=== PATIENT | female | born 1990 | race Caucasian/White ===

== ENCOUNTER 2019-10-29 12:37 | Inpatient (IN) | payer OTHER ==
[2019-10-29] MEDS: Lactated Ringer's 1,000 ML IV SCH ×2 (12:30→16:10)
[~2019-10-29 12:37] MED LIST: Bupivacaine/Epinephrine 0.25% 30 ML VIAL ONE
[2019-10-29 12:49] VITALS: BMI 31.7
[2019-10-29] MEDS ORDERED: HYDROcodone/Acetaminophen 5/325 mg Tablet PO PRN ×4 (13:01→22:43)
[2019-10-29] MEDS ORDERED: NS / Oxytocin 40 units/1000ml 1,000 ML IV PRN (13:01)
[2019-10-29] MEDS ORDERED: Carboprost 250 MCG/ML AMP IM PRN (13:01)
[2019-10-29] MEDS ORDERED: Diphenoxylate HCl/Atropine Tablet PO PRN ×2 (13:01)
[2019-10-29] MEDS ORDERED: Methylergonovine 0.2 MG/ML VIAL IM PRN ×2 (13:01→22:43)
[2019-10-29] MEDS ORDERED: Acetaminophen 500 MG TAB PO PRN (13:01)
[2019-10-29] MEDS ORDERED: Lidocaine 1% (PF) 30 ML VIAL SC PRN (13:01)
[2019-10-29] MEDS ORDERED: Butorphanol Tartrate 1 MG/ML VIAL SLOW IVP PRN (13:01)
[2019-10-29] MEDS ORDERED: Ibuprofen 800 MG TAB PO PRN (13:01)
[2019-10-29] MEDS ORDERED: Ondansetron PF 4 MG/2 ML Vial IVP PRN ×3 (13:01→22:43)
[2019-10-29] MEDS ORDERED: Zolpidem Tartrate 5 MG TAB PO PRN ×2 (13:01→22:43)
[2019-10-29] MEDS ORDERED: hydrALAZINE 20 MG/ML VIAL SLOW IVP PRN ×2 (13:01→22:43)
[2019-10-29] MEDS ORDERED: Promethazine HCl 25 MG/ML VIAL IM PRN ×3 (13:01→22:43)
[2019-10-29] MEDS ORDERED: Misoprostol 200 MCG TAB PR PRN (13:01)
[2019-10-29] MEDS ORDERED: NS w/ Oxytocin 10 units 500 ML IV SCH ×2 (13:15)
--- NOTE | 2019-10-29 13:17 | PDOC.LDHP ---
Labor and Delivery H&P Chief complaint: contractions HPI: 29 y/o at 38 weeks presents in labor, cervical check in office difficult due to very low station of head, patient discomfort during exam , and outer cervical os is paper thin and 6-7 cm dilated. Patient requesting epidural as soon as possible. Current gestational age (weeks): 38 Grav: 4 Para: 1 Current complications: none Abnormal US findings: No Current medications: pre-karishma vitamins Previous surgical history: none Allergies/Adverse Reactions: Allergies Allergy/AdvReac Type Severity Reaction Status Date / Time No Known Allergies Allergy Verified 10/29/19 12:42 Social history: none - Physical Exam Vital signs reviewed and normal: yes General: NAD Heart: RRR Lungs: CTAB Abdomen: gravid Extremeties: no edema FHT: category 1 - Vaginal Exam cm dilated: 6 - Assessment L&D Assessment: term patient in labor - Plan Plan: admit to L&D, labor augmentation if indicated
[2019-10-29 13:51] LABS: Hemoglobin 8.9 g/dL (12.0-16.0); Mean Corpuscular HGB CONC 31.6 g/dL (32.0-36.0); Mean Corpuscular Hemoglobin 22.7 pg (27.0-31.0); Mean Platelet Volume 11.8 fL (7.4-10.4); Platelet Count 220 thou/uL (130-400); RBC Distribution Width 17.1 % (11.5-14.5); Red Blood Cell (RBC) Count 3.91 mill/uL (4.20-5.40); White Blood Cell (WBC) Count 9.3 thou/uL (4.8-10.8)
[2019-10-29] MEDS ORDERED: Fentanyl 4 mcg/Bup 0.1% Cadd 100 ML ONE (14:03)
[2019-10-29 14:30] LABS: Syphilis Antibody Nonreactive (Nonreactive); Syphilis Antibody Index 0.13 S/CO (<1.00 Non-Reactive)
[2019-10-29 14:31] LABS: HBSAg Index 0.18 S/CO (0-0.99); Hep B Surf Ag Non-Reactive S/CO (NonReactive)
[2019-10-29] MEDS ORDERED: EPHEDRINE 25 MG/5 ML SYRINGE SLOW IVP PRN (14:58)
[2019-10-29] MEDS ORDERED: Naloxone HCl 0.4 mg/ml Vial IVP PRN ×2 (14:58)
[2019-10-29] MEDS ORDERED: Lactated Ringer's 500 ML IV PRN (14:58)
[2019-10-29] MEDS ORDERED: Acetaminophen 325 MG TAB PO PRN (14:58)
[2019-10-29] MEDS ORDERED: diphenhydrAMINE 50 MG/ML VIAL IVP PRN (14:58)
[2019-10-29] MEDS ORDERED: Communication Order-Pharmacy FS SCH (15:00)
[2019-10-29] MEDS ORDERED: Fentanyl 4 mcg/Bupivacaine 0.1% Cassette 100 ML EPIDURAL SCH (15:00)
[2019-10-29] MEDS ORDERED: Lidocaine 1% (PF) 30 ML VIAL ONE (19:25)
[2019-10-29] MEDS ORDERED: NS / Oxytocin 40 units/1000ml 1,000 ML IV SCH (22:43)
[2019-10-29] MEDS ORDERED: Misoprostol 200 MCG TAB VAG PRN (22:43)
[2019-10-29] MEDS ORDERED: Milk Of Magnesia 30 ML UDCUP PO PRN (22:43)
[2019-10-29] MEDS ORDERED: Bisacodyl 10 MG SUPP PR PRN (22:43)
[2019-10-29] MEDS ORDERED: Benzocaine-Menthol 82.5 ML CAN TOP PRN (22:43)
[2019-10-29] MEDS ORDERED: Lanolin Ointment 7 GM TUBE TOP PRN (22:43)
[2019-10-29] MEDS ORDERED: diphenhydrAMINE 25 MG CAP PO PRN (22:43)
[2019-10-29] MEDS ORDERED: Preparation H Ointment 28 GM TUBE PR PRN (22:43)
[2019-10-30] MEDS: Ibuprofen 800 MG TAB PO SCH ×3 (04:36→22:17)
[2019-10-30 06:09] LABS: Hemoglobin 8.4 g/dL (12.0-16.0); Mean Corpuscular HGB CONC 30.6 g/dL (32.0-36.0); Mean Corpuscular Hemoglobin 21.9 pg (27.0-31.0); Mean Corpuscular Volume 71.6 fL (78.0-98.0); Mean Platelet Volume 12.4 fL (7.4-10.4); Platelet Count 188 thou/uL (130-400); RBC Distribution Width 16.9 % (11.5-14.5); Red Blood Cell (RBC) Count 3.83 mill/uL (4.20-5.40); White Blood Cell (WBC) Count 12.2 thou/uL (4.8-10.8)
[2019-10-30] MEDS: Docusate Calcium (SURFAK) 240 MG CAP PO SCH ×2 (08:30→22:17)
[2019-10-30] MEDS: Prenatal Vitamin 1 TAB PO SCH (08:30)
[2019-10-30] MEDS: Ferrous Sulfate 325 MG TAB PO SCH ×2 (08:30→17:48)
[2019-10-30] MEDS ORDERED: Varicella virus, LIVE 0.5 ML VIAL SC ONE (09:00)
[2019-10-30] MEDS ORDERED: Measles/Mumps/Rubella 10 MCG/0.5 ML VIAL SC ONE (09:00)
[2019-10-30] MEDS ORDERED: Adacel (T-DAP) 0.5 ML SYRINGE IM ONE (09:00)
--- NOTE | 2019-10-30 15:28 | PDOC.PP ---
Post Progress Note Post Day #: 1 PO intake tolerated: yes Flatus: yes Ambulation: yes Vital Signs (12 hours) Temp Pulse Resp BP Pulse Ox 10/30/19 11:12 98.3 F 86 20 106/65 97 10/30/19 07:34 98.3 F 93 20 104/66 97 10/30/19 04:30 98.6 F 84 16 120/71 98 Weight Weight 215 lb - Physical Examination General: NAD Cardiovascular: no m/r/g, RRR Respiratory: clear to auscultation bilaterally, non-labored breathing Abdominal: + bowel sounds, lochia, no distention Extremities: negative homans (B) Neurological: no gross focal deficits Psychiatric: A&Ox3, normal affect Result Diagrams: 10/30/19 05:48 Additional Labs: Post Labs Blood Type A POSITIVE 10/29/19 13:25 Hep Bs Antigen Non-Reactive S/CO (NonReactive) 10/29/19 13:25
--- NOTE | 2019-10-31 01:29 | DN ---
DATE OF PROCEDURE: 10/29/2019 TIME OF SERVICE: At 1933 [place] Daylight Savings Time. PREOPERATIVE DIAGNOSIS: Intrauterine at 38 weeks and 4 days with a term spontaneous onset of labor. POSTOPERATIVE DIAGNOSIS: Intrauterine at 38 weeks and 4 days with a term spontaneous onset of labor. PROCEDURE PERFORMED: Spontaneous vaginal delivery over a small second-degree laceration of the perineum. FINDINGS: Viable female infant weighing 4183 g or 9 pounds 4 ounces. Apgars of 8 and 9. QUANTITATIVE BLOOD LOSS: 284 mL. COMPLICATIONS: None. PROCEDURE IN DETAIL: The patient presented to [facility] where she was admitted to the labor and delivery service. The patient underwent a normal and uneventful labor with normal cervical dilatation until she was found to be completely dilated. She was then allowed to push and was able to bring the baby down and delivered the baby in a vertex presentation without difficulties. Once the head delivered in occiput anterior position, the shoulders followed spontaneously along with the rest of the baby's body. Once out the baby's mouth and nose were bulb suctioned. The cord was clamped and cut and baby was handed to waiting attendants. Cord blood was collected. Gentle fundal massage was performed and the placenta delivered intact without problems. Hemostasis was assured. Quantitative blood loss was calculated. Inspection of the cervix, vaginal vault, and perineum did not reveal any lacerations needing suturing. Once again, hemostasis was within normal limits and the patient was allowed to recover in the labor and delivery room. Baby went to nursery. Job ID: [id number]
[2019-10-31] MEDS: Ibuprofen 800 MG TAB PO SCH (05:29)
[2019-10-31] MEDS: Docusate Calcium (SURFAK) 240 MG CAP PO SCH (10:00)
[2019-10-31] MEDS: Prenatal Vitamin 1 TAB PO SCH (10:00)
[2019-10-31] MEDS: Ferrous Sulfate 325 MG TAB PO SCH (10:00)
[2019-10-31 11:05] VITALS: BP 103/57; TEMP 98.2
--- NOTE | 2019-11-02 00:07 | PQF ---
CLINICAL DOCUMENTATION CLARIFICATION FORM: Dear : Chet Yi Date / Time: 11/02/19 0005 Please exercise your independent, professional judgment in responding to the clarification form. Clinical indicators are provided on the bottom of this form for your review Please check appropriate box(es): [ ] Associated Diagnosis: Acute blood loss Anemia [ ] Abnormal laboratory findings not clinically significant [ ] Other diagnosis [ ] Unable to determine In addition, please specify: Present on Admission (POA): [ ] Yes [ ] No [ ] Unable to determine Physician Signature: Date/Time: For continuity of documentation, please document condition throughout progress notes and discharge summary. Thank You. To be completed by CDI/Coding staff for physician review: Present Clinical Indicators - Signs / Symptoms / Labs Results and Location in Medical Record [X] RBC 3.91, Hgb 8.9, Hct 28.1 Laboratory Hematology 10/28 [X] RBC 3.83, Hgb 8.4, Hct 27.4 Laboratory Hematology 10/29 [X] BP 116/68, Pulse 93, Resp 18, Temp 98.3 Vital signs 10/28 [X] EBL: 284 ml L&D summary p1 10/28 Present Risk Factors Results and Location in Medical Record [X] 38 weeks IUP H&P p1 10/28 Dr Yi [X] 2nd degree perineal laceration L&D summary p1 10/28 [X] s/p L&D summary p1 10/28 Present Treatments Results and Location in Medical Record [X] Series of Hct and Hgb labs Laboratory Hematology 10/28 [X] IVF Lactated Ringers 1L JUN 26 [X] Ferrous Sulfate 325 mg oral JUN 26 CDS/Curb Worker Signature: Vivi Reynolds Phone #: [phone] Date/Time: 11/02/19 0005 This is a permanent part of the Medical Record [facility]
== END 2019-10-31 12:50 | disposition home or self-care (01) | DRG 807 ==
LOC: L&D 12:37 → 3SW 10-30 02:26
PROVIDERS: ADMIT Obstetrics & Gynecology; ATTEND Obstetrics & Gynecology
PROC: 10E0XZZ Delivery of Products of Conception, External Approach (ICD-10-PCS; principal; 2019-10-29)
PROC: 0KQM0ZZ Repair Perineum Muscle, Open Approach (ICD-10-PCS; 2019-10-29)
PROC: 10907ZC Drainage of Amniotic Fluid, Therapeutic from Products of Conception, Via Natural or Artificial Opening (ICD-10-PCS; 2019-10-29)
DX: O70.1 Second degree perineal laceration during delivery (principal); Z37.0 Single live birth; Z3A.38 38 weeks gestation of pregnancy
CPT/HCPCS: 36415; 51702; 85027; 86780; 86850; 86900; 86901; 87340; 90715; J2001; J2590